=== PATIENT | male | born 1985 | race Caucasian/White ===

== ENCOUNTER 2017-10-06 09:57 | Inpatient (IN) ==
[2017-10-06] MEDS ORDERED: IOPAMIDOL 100 ML BOTTLE IJ ONE (09:58)
[2017-10-06] MEDS ORDERED: ONDANSETRON 4 MG/2 ML VIAL IV ONE ×2 (10:28→11:25)
[2017-10-06] MEDS ORDERED: 0.9 % SODIUM CHLORIDE 1,000 ML IV ONE ×2 (10:29→11:49)
[2017-10-06] MEDS ORDERED: HYDROmorphone 2 MG/ML SYRINGE IV SCH ×2 (10:30→11:30)
[2017-10-06 11:19] LABS: Basophils # (Auto) 0 K/mcL (0.0-0.3); Basophils % (Auto) 0.3 % (0.0-2.0); Eosinophils # (Auto) 0.1 K/mcL (0.0-0.7); Eosinophils % (Auto) 1.1 % (0.0-7.0); Lymphocytes # (Auto) 1.7 K/mcL (1.5-4.8); Lymphocytes % (Auto) 13.9 % (15.5-49.0); Mean Cell Volume 85.7 fL (80.0-100.0); Mean Corpuscular HGB Conc 33.7 g/dL (31.0-36.0); Mean Corpuscular Hemoglobin 28.9 pg (26.0-34.0); Monocytes # (Auto) 0.5 K/mcL (0.1-0.9); Monocytes % (Auto) 3.7 % (1.0-12.0); Platelet Count 291 K/mcL (140-440); RBC 4.56 M/mcL (4.50-5.90); Red Cell Distribution Width 12.7 % (11.5-14.5)
[2017-10-06 11:34] LABS: ALT/SGPT 16 U/l (0-40); Albumin 4.2 gm/dL (3.2-5.2); Albumin/Globulin Ratio 1.7 (1.0-2.3); Alkaline Phosphatase 60 U/L (39-117); Amylase 243 U/L (28-100); Blood Urea Nitrogen 14 mg/dl (6-20)
[2017-10-06 11:40] LABS: Lipase 760 U/L (7-60)
[2017-10-06] MEDS ORDERED: 0.9 % SODIUM CHLORIDE 2,000 ML IV ONE (11:54)
--- NOTE | 2017-10-06 11:57 | Emergency Department Note ---
Abdominal Pain HPI - General Chief Complaint: Abdominal Pain Stated Complaint: abd pain, central Time Seen by Provider: 10/06/17 10:09 Source: patient Mode of arrival: ambulatory Limitations: no limitations - History of Present Illness HPI Narrative: 32-year-old male presents with abdominal pain since last night. Worse this morning and woke him up in the middle the night. States he has had pancreatitis in the past. he believes he has pancreatitis again. States this was previously because from drug and alcohol use. However he states he just got out of [facility] a couple of days ago. He was in [facility] for over 2 years so it has been at least 2 years since he has last used drugs or alcohol. Positive nausea. No vomiting or diarrhea. Unknown fever. Positive chills. No cough or cold symptoms. - Related Data Home Medications Medication Instructions Recorded Confirmed Aripiprazole [Abilify] 15 mg PO DAILY 11/03/15 11/03/15 Benztropine [Cogentin] 2 mg PO BID 11/03/15 11/03/15 busPIRone [Buspar] 30 mg PO BID 11/03/15 11/03/15 Allergies Allergy/AdvReac Type Severity Reaction Status Date / Time morphine AdvReac Agitated Verified 10/06/17 10:05 Review of Systems All systems ED: reviewed and negative except as stated. Abdominal Pain PMH - Past Medical History Medical history: Reports: other (Pancreatitis, prior alcoholism, prior drug use. States no drug or alcohol use for the last 2+ years) Surgical history ED: Reports: no surgical history - Social History Smoking status: Current every day smoker Alcohol use: Reports: None (Denies) Drug use: Reports: none (Denies) Physical Exam Limitations: no limitations General appearance: alert, in no apparent distress Head: atraumatic, normocephalic, normal inspection Eye: Present: normal appearance. Absent: conjunctival injection ENT: normal exam, normal oropharynx, mucous membranes moist, TM's normal bilaterally, normal external ear exam Neck: Present: normal inspection, trachea midline. Absent: tenderness, lymphadenopathy Chest: Present: normal inspection, symmetric chest wall rise Respiratory: Present: normal lung sounds bilaterally. Absent: respiratory distress, wheezes, accessory muscle use Cardiovascular: Present: regular rate, normal heart sounds Abdominal: Present: soft, tenderness (Midepigastric tenderness and left upper quadrant tenderness with palpation.). Absent: distention, mass Extremities: Present: normal inspection. Absent: pedal edema Back: Absent: CVA tenderness (R), CVA tenderness (L) Neurological: Present: alert, oriented X3 Psychiatric: Present: normal affect, normal mood Skin: Present: warm, dry, intact, normal color. Absent: rash, cyanosis, diaphoresis, erythema Course Course Narrative: Spoke with Dr. Marquez who agrees to admit the patient. He is requiring IV medication for pain control and nausea control. Vital Signs Temperature 97.1 F 10/06/17 09:58 Pulse Rate 70 10/06/17 09:58 Respiratory Rate 16 10/06/17 09:58 Blood Pressure 144/86 10/06/17 09:58 Pulse Oximetry (%) 97 10/06/17 09:58 Temperature 97.1 F 10/06/17 09:58 Pulse Rate 61 10/06/17 13:50 Respiratory Rate 18 10/06/17 13:50 Blood Pressure 123/87 10/06/17 13:50 Pulse Oximetry (%) 97 10/06/17 13:50 Abdominal Pain - Lab Data Lab results reviewed: Yes I reviewed the patient's lab results. Result diagrams: 10/06/17 10:33 10/06/17 10:33 Lab Results 10/06/17 10/06/17 10/06/17 Range/Units 10:33 10:33 10:33 WBC 12.4 H (4.5-11.0) K/mcL RBC 4.56 (4.50-5.90) M/mcL Hgb 13.2 L (13.5-16.5) g/dL Hct 39.0 L (41.0-55.0) % MCV 85.7 (80.0-100.0) fL MCH 28.9 (26.0-34.0) pg MCHC 33.7 (31.0-36.0) g/dL RDW 12.7 (11.5-14.5) % Plt Count 291 (140-440) K/mcL MPV 7.6 (7.4-10.4) fL Gran % 81.0 H (38.0-78.0) % Lymph % (Auto) 13.9 L (15.5-49.0) % Barber % (Auto) 3.7 (1.0-12.0) % Eos % (Auto) 1.1 (0.0-7.0) % Baso % (Auto) 0.3 (0.0-2.0) % Gran # 10.1 H (1.8-8.0) K/mcL Lymph # (Auto) 1.7 (1.5-4.8) K/mcL Barber # (Auto) 0.5 (0.1-0.9) K/mcL Eos # (Auto) 0.1 (0.0-0.7) K/mcL Baso # (Auto) 0 (0.0-0.3) K/mcL Sodium 139 (133-145) mmol/L Potassium 4.1 (3.3-5.1) mmol/L Chloride 102 (96-108) mmol/L Carbon Dioxide 23 (22-30) mmol/L Anion Gap 14.0 (8-16) BUN 14 (6-20) mg/dl Creatinine 1.0 (0.7-1.2) mg/dl GFR Calculation 100 Glucose 106 H (70-105) mg/dL Calcium 9.0 (8.6-10.4) mg/dl Total Bilirubin 0.4 (0.0-1.0) mg/dL AST 12 (0-37) U/l ALT 16 (0-40) U/l Alkaline Phosphatase 60 (39-117) U/L Total Protein 6.7 (5.9-8.4) gm/dL Albumin 4.2 (3.2-5.2) gm/dL Globulin 2.5 (2.2-3.7) gm/dL Albumin/Globulin Ratio 1.7 (1.0-2.3) Amylase 243 H (28-100) U/L Lipase 760 H (7-60) U/L Urine Opiates Screen (NONDETECTED) Ur Oxycodone Screen (NONDETECTED) Urine Methadone Screen (NONDETECTED) Ur Barbiturates Screen (NONDETECTED) Ur Phencyclidine Scrn (NONDETECTED) Ur Amphetamines Screen (NONDETECTED) U Benzodiazepines Scrn (NONDETECTED) Urine Cocaine Screen (NONDETECTED) U Marijuana (THC) Screen (NONDETECTED) Ethyl Alcohol < 0.010 (<0.010) gm/dl 10/06/17 Range/Units 11:59 WBC (4.5-11.0) K/mcL RBC (4.50-5.90) M/mcL Hgb (13.5-16.5) g/dL Hct (41.0-55.0) % MCV (80.0-100.0) fL MCH (26.0-34.0) pg MCHC (31.0-36.0) g/dL RDW (11.5-14.5) % Plt Count (140-440) K/mcL MPV (7.4-10.4) fL Gran % (38.0-78.0) % Lymph % (Auto) (15.5-49.0) % Barber % (Auto) (1.0-12.0) % Eos % (Auto) (0.0-7.0) % Baso % (Auto) (0.0-2.0) % Gran # (1.8-8.0) K/mcL Lymph # (Auto) (1.5-4.8) K/mcL Barber # (Auto) (0.1-0.9) K/mcL Eos # (Auto) (0.0-0.7) K/mcL Baso # (Auto) (0.0-0.3) K/mcL Sodium (133-145) mmol/L Potassium (3.3-5.1) mmol/L Chloride (96-108) mmol/L Carbon Dioxide (22-30) mmol/L Anion Gap (8-16) BUN (6-20) mg/dl Creatinine (0.7-1.2) mg/dl GFR Calculation Glucose (70-105) mg/dL Calcium (8.6-10.4) mg/dl Total Bilirubin (0.0-1.0) mg/dL AST (0-37) U/l ALT (0-40) U/l Alkaline Phosphatase (39-117) U/L Total Protein (5.9-8.4) gm/dL Albumin (3.2-5.2) gm/dL Globulin (2.2-3.7) gm/dL Albumin/Globulin Ratio (1.0-2.3) Amylase (28-100) U/L Lipase (7-60) U/L Urine Opiates Screen None detected (NONDETECTED) Ur Oxycodone Screen None detected (NONDETECTED) Urine Methadone Screen None detected (NONDETECTED) Ur Barbiturates Screen None detected (NONDETECTED) Ur Phencyclidine Scrn None detected (NONDETECTED) Ur Amphetamines Screen None detected (NONDETECTED) U Benzodiazepines Scrn None detected (NONDETECTED) Urine Cocaine Screen None detected (NONDETECTED) U Marijuana (THC) Screen None detected (NONDETECTED) Ethyl Alcohol (<0.010) gm/dl - Radiology Data Radiology results reviewed: Yes I reviewed the patient's radiology results. Disposition Pt seen by MEDICAL DRIVER/PA only: No Clinical Impression: Pancreatitis Disposition: Xfer As Inpt ([facility]) Condition: Good Referrals: No,PCP [Primary Care Provider] -
--- NOTE | 2017-10-06 12:22 | Cat Scan Report ---
CLINICAL INFORMATION: Abdominal pain. COMPARISON: None. TECHNIQUE: Axial images were obtained through the abdomen and pelvis. Sagittally and coronally reformatted images. 80 mL injected intravenously. Oral contrast material was not administered FINDINGS: There is infiltration of peripancreatic fat within the lesser sac. Appearance is consistent with pancreatitis. Pancreas is is negative. No evidence for pancreatic abscess or necrosis. There is no pseudocyst. Findings are consistent with mild simple pancreatitis. Pancreatic duct is not dilated. Negative liver. No focal intrahepatic abnormality. No evidence for cirrhosis. Gallbladder is negative. No calcified gallstones. No dilated bile ducts. Spleen is negative. Normal enhancement of splenic and portal veins Negative adrenal glands. Kidneys are negative. No solid or cystic mass. No hydronephrosis. Small retroperitoneal lymph nodes are considered physiologic. Colon is negative. No diverticulitis. No detectable mass. No mechanical small bowel obstruction. Urinary bladder is distended. No calcified bladder stone. Bases are negative. No focal infiltrate. No pleural fluid or pericardial fluid IMPRESSION: 1. Findings consistent with mild pancreatitis. There is infiltration of peripancreatic fat. 2. No pancreatic mass. No pseudocyst. 3. Distended urinary bladder. No detectable calculus or mass The exam was performed using radiation dose optimization techniques including, but not limited to, automated exposure control, adjustment of the mA and/or kV according to patient size and use of iterative reconstruction technique. Interpreted and Authenticated by: Donald Garcia 10/06/17
[2017-10-06 12:29] LABS: Amphetamine Screen,Urine NONE DETECTED (NONDETECTED); Benzodiazepines Screen,Urine NONE DETECTED (NONDETECTED); Cocaine Screen,Urine NONE DETECTED (NONDETECTED); Opiate Screen,Urine NONE DETECTED (NONDETECTED); Oxycodone, Urine Screen NONE DETECTED (NONDETECTED)
--- NOTE | 2017-10-06 12:41 | Emergency Department Note ---
ED Note Addendum Note Addendum: I have examined the patient and lab work and agree with dx of pancreatitis . CT - pancreatitis. I agree with diagnosisi and treatment and need to admitt.
[2017-10-06] MEDS ORDERED: ACETAMINOPHEN 325 MG TABLET PO PRN (14:39)
[2017-10-06] MEDS ORDERED: ACETAMINOPHEN 1,000 MG/100 ML BOTTLE IV PRN (14:39)
[2017-10-06] MEDS ORDERED: ONDANSETRON 4 MG/2 ML VIAL IV PRN (14:39)
[2017-10-06] MEDS ORDERED: MAGNESIUM SULFATE 2 GM/50 ML BAG IV PRN (14:39)
[2017-10-06] MEDS ORDERED: POTASSIUM CHLORIDE 40 MEQ in DEXTROSE 5% IN WATER 500 ML IV PRN (14:39)
[2017-10-06] MEDS ORDERED: PROMETHAZINE 25 MG/ML VIAL IV PRN (14:39)
[2017-10-06] MEDS: HYDROmorphone 2 MG/ML SYRINGE IV PRN ×3 (14:59→23:19)
[2017-10-06 15:18] LABS: C-Reactive Protein < 0.3 mg/dl (0.0-0.8)
[2017-10-06] MEDS: 0.9 % SODIUM CHLORIDE 10 ML SYRINGE IV SCH ×2 (15:56→22:28)
[2017-10-06] MEDS: 0.9 % SODIUM CHLORIDE 1,000 ML IV SCH (16:00)
--- NOTE | 2017-10-06 16:09 | History and Physical Report ---
DATE OF ADMISSION: 10/06/2017 REASON FOR ADMISSION: Abdominal pain. HISTORY OF CHIEF COMPLAINT: The patient is a 32-year-old who was recently released from [place] [facility] and carries a history of recurrent pancreatitis, and as per patient the fourteenth episode, who comes to [facility] Emergency Room with significant abdominal pain that started last night. He endorses to 8/10 abdominal pain radiating from front to back, associated with nausea. He denies any associated diarrhea or fever. He endorses to pressure symptoms, pain exacerbated with food with no relieving factor. The pain continued to get worse throughout the night which kept him awake. Given his previous episodes of pancreatitis, the patient became concerned and subsequently came to [facility]. He, however, endorses that he has not been drinking. He was recently released from [facility] and has not used alcohol or drugs in the last couple years. Other than that, he denies fever, shaking chills, yellow discoloration of urine and he further denies bloody emesis, bloody stool, dysuria, or shaking chills. Initial workup in the ER was significant for lipase over 700 along with elevated amylase. Patient was started on crystalloids, initial CT shows simple pancreatitis and subsequently Hospitalist Service was consulted for admission. REVIEW OF SYSTEMS: Ten-point review of system was performed and negative except the ones discussed above. PAST MEDICAL HISTORY: History of anxiety disorder, recurrent pancreatitis. CURRENT MEDICATIONS: 1. Buspirone 30 mg b.i.d. 2. Benztropine 2 b.i.d. 3. Aripiprazole 15 mg b.i.d. ALLERGIES: MORPHINE. FAMILY HISTORY: None remarkable for pancreatitis. SOCIAL HISTORY: He smokes frequently, lives with a girlfriend. He denies recent alcohol or substance abuse. PHYSICAL EXAMINATION: GENERAL: The patient is alert and oriented. BMI 27. Height 5 feet 10 inches. He has extensive tattoos. VITAL SIGNS: Blood pressure 150/75, respiration rate 20, temperature 97.1, pulse 70, sats 97%. HEENT: Pupils symmetric. Oral cavity is dry. No ear or nose discharge. Head is normocephalic and atraumatic. NECK: No lymphadenopathy. HEART: S1, S2, regular rate and rhythm. No murmur. CHEST: Clear to auscultation. ABDOMEN: Tender in epigastric area without rebound. LOWER EXTREMITIES: No cyanosis or clubbing. No joint swelling. SKIN: No suspicious lesions; generalized extensive tattoos. PSYCHIATRIC: Alert and cooperative. No anxiety or agitation. NEURO: Nonfocal, moving all four extremities. LABS AND IMAGING: White count 12.4, hemoglobin 13.2. Sodium 139, potassium 4.1, creatinine 1, BUN 14 and CRP pending. Lipase 760, amylase 243. Tox screen negative. Alcohol 0.01. ASSESSMENT AND PLAN: A 32-year-old with history of recurrent pancreatitis, admitted with acute pancreatitis. 1. Acute pancreatitis, simple pancreatitis on imaging with 10 x normal elevation in lipase, unclear etiology. Continue management per protocol with aggressive crystalloids, antiemetics, analgesics, and n.p.o. with continued bowel rest, low Hope's and KOTLIK score on admission signifying low risk mortality. The patient will be admitted as inpatient and will continue to trend serial CRP for improvement in abdominal pain, will be managed on opioids. 2. History of anxiety disorder. Continue BuSpar. PLAN FOR TODAY: Exact etiology is uncertain given negative CT, possibly alcohol induced. Continue conservative management along with pain relief as indicated with IV opioids. AA:yoselin Job ID: [id number] Doc ID: [id number] Roderick Claros MD
[2017-10-06] MEDS: LACTATED RINGERS 1,000 ML IV SCH ×2 (17:11→22:21)
[2017-10-06] MEDS: HEPARIN 5,000 UNIT/ML VIAL SQ SCH (22:26)
[2017-10-06] MEDS: SENNOSIDES/DOCUSATE SODIUM 1 TAB TABLET PO SCH (22:26)
[2017-10-06] MEDS: DOCUSATE SODIUM 100 MG CAPSULE PO SCH (22:26)
[2017-10-07] MEDS: HYDROmorphone 2 MG/ML SYRINGE IV PRN ×5 (03:08→23:51)
[2017-10-07] MEDS: LACTATED RINGERS 1,000 ML IV SCH ×3 (03:13→11:31)
[2017-10-07] MEDS: 0.9 % SODIUM CHLORIDE 10 ML SYRINGE IV SCH ×3 (05:25→21:15)
[2017-10-07 06:46] LABS: Mean Cell Volume 85.8 fL (80.0-100.0); Mean Corpuscular HGB Conc 34.3 g/dL (31.0-36.0); Mean Corpuscular Hemoglobin 29.4 pg (26.0-34.0); Platelet Count 243 K/mcL (140-440); RBC 3.94 M/mcL (4.50-5.90); Red Cell Distribution Width 12.8 % (11.5-14.5)
[2017-10-07 07:04] LABS: ALT/SGPT 13 U/l (0-40); Albumin 3.7 gm/dL (3.2-5.2); Albumin/Globulin Ratio 1.8 (1.0-2.3); Alkaline Phosphatase 53 U/L (39-117); Bilirubin,Direct < 0.2 mg/dL (0.0-0.3); Blood Urea Nitrogen 12 mg/dl (6-20); C-Reactive Protein 0.8 mg/dl (0.0-0.8); Gamma Glutamyl Transpeptidase 11 U/L (8-61); Magnesium 1.8 mg/dL (1.6-2.5); Uric Acid 6.7 mg/dL (2.5-8.0)
[2017-10-07 08:15] LABS: Band Neutrophils % 1 % (0-10); Eosinophils % (Manual) 2 % (0-7); Lymphocytes % 30 % (15-49); Monocytes % (Manual) 7 % (1-12); Platelet Estimate NORMAL (NORMAL); RBC Morphology NORMAL (NORMAL); Segmented Neutrophils % 60 % (38-78)
[2017-10-07] MEDS ORDERED: THIAMINE 100 MG in 0.9 % SODIUM CHLORIDE 50 ML IV SCH (09:00)
[2017-10-07] MEDS: DOCUSATE SODIUM 100 MG CAPSULE PO SCH ×2 (09:52→21:14)
[2017-10-07] MEDS: HEPARIN 5,000 UNIT/ML VIAL SQ SCH ×2 (09:52→21:14)
[2017-10-07] MEDS: MULTIVIT,THER IRON,CA,FA & MIN 1 TABLET PO SCH (09:52)
--- NOTE | 2017-10-07 10:19 | Internal Med Progress Note ---
Medical - PN: Subj Patient information: Note initiated : 10/07/17 at 10:17 am Service Date, if different from initiated Date: [] Patient: Celso Adames 32 y/o M admitted on 10/06/17 for abd pain, central. Chief Complaint: [] Interval history: 10/06-atient admitted with acute simple pancreatitis. Low Foster score admitted. Conservative management with bowel rest crystalloids and antiemetics and pain management. Unclear etiology. Negative abdominal CT. lipase 760 10/07-patient doing well. Improved with bowel pain and ambulating. No nausea. Start clear liquids. advance diet in the next 24-48 hours. Continue conservative management. CRP 0.3. No overnight fever chills - Constitutional Vitals: Vital Signs Temp Pulse Resp BP Pulse Ox 96.8 F L 60 14 117/62 96 10/07/17 06:53 10/07/17 08:27 10/07/17 06:53 10/07/17 06:53 10/07/17 08:27 Period Temp Pulse Resp BP Sys/Echavarria Pulse Ox Last 24 Hr 96.8 F-97.9 F 56-78 14-20 112-135/61-90 94-98 Intake and Output 10/06/17 10/07/17 10/07/17 21:59 05:59 13:59 Intake Total 1972 977 / 977 Balance 1972 977 / 977 Weight 202 lb Intake & Output: Intake & Output 10/06/17 10/07/17 10/07/17 21:59 05:59 13:59 Intake Total 1972 977 / 977 Balance 1972 977 / 977 Weight 202 lb Intake: IV 1972 977 / 977 Lactated Ringers 1,000 ml @ 200 1972 977 / 977 mls/hr IV .Q5H [facility] Rx#: [id number] General appearance: average body habitus, no acute distress Exam: alert oriented nonlabored breathing nondistended abdomen Stable hemodynamics and vitals Medical - PN: Obj Da - Labs CBC & Chem 7: 10/07/17 04:40 10/07/17 04:40 Labs: Abnormal Lab Results 10/07/17 10/07/17 10/06/17 04:40 04:40 10:33 WBC RBC 3.94 L Hgb 11.6 L Hct 33.8 L Gran % Lymph % (Auto) Gran # Glucose 106 H Total Protein 5.8 L Globulin 2.1 L Amylase 243 H Lipase 760 H 10/06/17 10:33 WBC 12.4 H RBC Hgb 13.2 L Hct 39.0 L Gran % 81.0 H Lymph % (Auto) 13.9 L Gran # 10.1 H Glucose Total Protein Globulin Amylase Lipase Meds: Medications Acetaminophen (Tylenol) 650 mg PO Q4-6HP PRN PRN Reason: PAIN/FEVER > 101 Docusate Sodium (Colace) 100 mg PO BID [facility] Last Admin: 10/07/17 09:52 Dose: 100 mg Heparin Sodium (Porcine) (Heparin) 5,000 unit SQ Q12 [facility] Last Admin: 10/07/17 09:52 Dose: 5,000 unit Hydromorphone HCl (Dilaudid) 0 mg IV Q4HP PRN PRN Reason: PAIN LEVEL > 6 Last Admin: 10/07/17 07:23 Dose: 1 mg Potassium Chloride 40 meq/ (Dextrose) 520 mls @ 130 mls/hr IV UD PRN PRN Reason: K+ = or < 3.5 Lactated Ringer's (Lactated Ringers) 1,000 mls @ 200 mls/hr IV .Q5H [facility] Stop: 10/07/17 15:38 Last Admin: 10/07/17 08:06 Dose: 200 mls/hr Magnesium Sulfate (Magnesium Sulfate) 2 gm in 50 mls @ 50 mls/hr IV UD PRN PRN Reason: MG = or < 1.7 Sodium Chloride (Sodium Chloride 0.9%) 1,000 mls @ 0 mls/hr IV BOLUS [facility] PRN Reason: Wide Open Last Admin: 10/06/17 16:00 Dose: 999 mls/hr Acetaminophen (Ofirmev) 1,000 mg in 100 mls @ 200 mls/hr IV Q6HP PRN PRN Reason: PAIN/FEVER > 101 Thiamine HCl 100 mg/ Sodium (Chloride) 51 mls @ 50 mls/hr IV DAILY [facility] Stop: 10/09/17 10:02 Iron Carb/Multivit/Edmonson/Folic Acid (Multivitamin W/Minerals) 1 tab PO DAILY [facility] Last Admin: 10/07/17 09:52 Dose: 1 tab Ondansetron HCl (Zofran) 4 mg IV Q4-6HP PRN PRN Reason: Nausea And Vomiting Promethazine HCl (Phenergan) 6.25 mg IV Q4-6HP PRN PRN Reason: Nausea And Vomiting Senna/Docusate Sodium (Senna Plus Tablet) 1 tab PO HS [facility] Last Admin: 10/06/17 22:26 Dose: 1 tab Sodium Chloride (Saline Flush) 10 ml IV Q8 [facility] Last Admin: 10/07/17 05:25 Dose: Not Given Medical - PN: A/P - Time Spent With Patient Total time spent is greater than 50% in coordination of care (as documented) at patient's floor/unit and/or counseling patient: 15 - 24 minutes (1) Acute pancreatitis without necrosis or infection, unspecified Status: Acute Assessment and plan: * Acute simple pancreatitis- on conservative management, bowel rest, analgesics , crystalloids, NPO and antiemetics. Lipase 760. CRP 0.03. Start clear liquids * Abdominal pain managed on opioids. Much improved Plan * Clear liquids and advance as tolerated * possible discharge in 24 to 48 hours Current Visit: Yes Medical - PN: Qual - Stroke Symptom Onset Unknown: No - VTE Deep Vein Thrombosis/Pulmonary Embolism Present on Admission: No
[2017-10-07] MEDS: THIAMINE 100 MG TABLET PO SCH (11:49)
[2017-10-07] MEDS: 0.9 % SODIUM CHLORIDE 1,000 ML IV SCH (14:35)
[2017-10-07] MEDS: SENNOSIDES/DOCUSATE SODIUM 1 TAB TABLET PO SCH (21:14)
[2017-10-08] MEDS: HYDROmorphone 2 MG/ML SYRINGE IV PRN ×2 (04:39→08:17)
[2017-10-08] MEDS: 0.9 % SODIUM CHLORIDE 10 ML SYRINGE IV SCH (04:40)
[2017-10-08 06:21] LABS: Mean Cell Volume 85.4 fL (80.0-100.0); Mean Corpuscular HGB Conc 34.4 g/dL (31.0-36.0); Mean Corpuscular Hemoglobin 29.4 pg (26.0-34.0); Platelet Count 217 K/mcL (140-440); RBC 3.93 M/mcL (4.50-5.90); Red Cell Distribution Width 12.7 % (11.5-14.5)
[2017-10-08 06:39] LABS: ALT/SGPT 12 U/l (0-40); Albumin 3.5 gm/dL (3.2-5.2); Albumin/Globulin Ratio 1.6 (1.0-2.3); Alkaline Phosphatase 50 U/L (39-117); Bilirubin,Direct < 0.2 mg/dL (0.0-0.3); Blood Urea Nitrogen 8 mg/dl (6-20); Gamma Glutamyl Transpeptidase 10 U/L (8-61); Magnesium 1.9 mg/dL (1.6-2.5); Uric Acid 6.7 mg/dL (2.5-8.0)
[2017-10-08 07:38] LABS: Eosinophils % (Manual) 3 % (0-7); Lymphocytes % 32 % (15-49); Monocytes % (Manual) 3 % (1-12); Platelet Estimate NORMAL (NORMAL); RBC Morphology NORMAL (NORMAL); Segmented Neutrophils % 62 % (38-78)
[2017-10-08] MEDS: THIAMINE 100 MG TABLET PO SCH (08:09)
[2017-10-08] MEDS: HEPARIN 5,000 UNIT/ML VIAL SQ SCH (08:09)
[2017-10-08] MEDS: MULTIVIT,THER IRON,CA,FA & MIN 1 TABLET PO SCH (08:09)
[2017-10-08] MEDS: DOCUSATE SODIUM 100 MG CAPSULE PO SCH (08:09)
--- NOTE | 2017-10-08 09:37 | Discharge Summary ---
Medical - DS: Prov Patient information: Note initiated : 10/08/17 at 9:34 am Service Date, if different from initiated Date: [] Patient: Celso Adames 32 y/o M admitted on 10/06/17 for Abd Pain, Central/ Pancreatitis. Chief Complaint: [] Date of admission: 10/06/17 14:36 Discharge date: 10/08/17 Primary care physician: PCP No Medical - DS: Meds - Discharge Medications Prescriptions: HYDROcodone/ACETAMINOPHEN [Hydrocodon-Acetaminophen 5-325] 1 each PO Q6HP PRN # 14 tab PRN Reason: Pain Active and Home Medications: Home Medications Benztropine [Cogentin] 2 mg PO BID 11/03/15 [History Confirmed 10/06/17 Last Taken 10/06/17 07:30] busPIRone [Buspar] 30 mg PO BID 11/03/15 [History Confirmed 10/06/17 Last Taken 10/06/17 07:30] FLUoxetine HCL [Prozac] 30 mg PO DAILY 10/06/17 [History Confirmed 10/06/17 Last Taken 10/06/17] OLANZapine [Zyprexa] 10 mg PO HS 10/06/17 [History Confirmed 10/06/17 Last Taken 10/05/17] HYDROcodone/ACETAMINOPHEN [Hydrocodon-Acetaminophen 5-325] 1 each PO Q6HP PRN # 14 tab 10/08/17 [Rx Last Taken Unknown] Medical - DS: Hosp Hospital course: DISCHARGE DIAGNOSIS * Acute simple pancreatitis- Clinically resolved on conservative management, bowel rest, analgesics, crystalloids, NPO and antiemetics. Lipase 760. diet advanced to soft without any significant abdominal pain. clinically back to baseline. * Abdominal pain managed on opioids. esolved * anxiety disorder start SSRI BRIEF HOSPITAL COURSE Mr. Adames is a 32 year old M 10/06-atient admitted with acute simple pancreatitis. Low Kimball score admitted. Conservative management with bowel rest crystalloids and antiemetics and pain management. Unclear etiology. Negative abdominal CT. lipase 760 10/07-patient doing well. Improved with bowel pain and ambulating. No nausea. Start clear liquids. advance diet in the next 24-48 hours. Continue conservative management. CRP 0.3. No overnight fever chills 10/08-patient doing better. Tolerating soft diet. Abdominal pain nearly resolved. Feels at baseline. Requesting discharge. Advised to refrain from alcohol and continue nonfat diet Discharge diagnosis: . - Time Spent with Patient Total time spent providing and/or coordinating discharge services: Greater than 30 minutes Medical - DS: Exam - Constitutional Vitals: Vital Signs Temp Pulse Pulse Resp BP BP Pulse Ox 10/08/17 07:40 74 95 10/08/17 06:43 97.1 F 55 L 16 122/75 95 10/08/17 03:52 97.8 F 51 L 16 111/69 96 10/07/17 23:53 98.1 F 55 L 18 146/86 97 10/07/17 19:21 97.6 F 56 L 16 124/64 96 10/07/17 15:32 98.8 F 14 110/71 94 10/07/17 12:00 97.8 F 14 116/73 97 Intake and Output 10/07/17 10/08/17 10/08/17 21:59 05:59 13:59 Intake Total 1650 / 1650 250 / 250 240 / 240 Balance 1650 / 1650 250 / 250 240 / 240 Intake: IV 1000 / 1000 Sodium Chloride 0.9% 1,000 ml @ 1000 / 1000 Wide Open IV [facility] Rx#: [id number] Oral 650 / 650 250 / 250 240 / 240 Other: # Voids 2 Weight 203 lb 8 oz Medical - DS: Data Labs on day of discharge: Labs from last 24 hours 10/08/17 10/08/17 04:35 04:35 WBC 6.8 RBC 3.93 L Hgb 11.5 L Hct 33.6 L MCV 85.4 MCH 29.4 MCHC 34.4 RDW 12.7 Plt Count 217 MPV 7.8 Total Counted 100 Seg Neutrophils % 62 Band Neutrophils % Not Reportable Lymphocytes % 32 Monocytes % (Manual) 3 Eosinophils % (Manual) 3 Platelet Estimate Normal RBC Morphology Normal Sodium 140 Potassium 3.8 Chloride 105 Carbon Dioxide 26 Anion Gap 9.0 BUN 8 Creatinine 0.9 GFR Calculation 113 Glucose 87 Uric Acid 6.7 Calcium 8.5 L Phosphorus 3.1 Magnesium 1.9 Total Bilirubin 0.2 Direct Bilirubin < 0.2 GGT 10 AST 12 ALT 12 Alkaline Phosphatase 50 Lactate Dehydrogenase 138 Total Protein 5.7 L Albumin 3.5 Globulin 2.2 Albumin/Globulin Ratio 1.6 Triglycerides 87 Medical - DS: A/P - Patient/Caregiver Discharge Instructions Activity: increase activity as tolerated Diet: Low Fat Additional Instructions: low-fat diet Refrain from alcohol Return to ER if worsening abdominal pain Prescriptions: HYDROcodone/ACETAMINOPHEN [Hydrocodon-Acetaminophen 5-325] 1 each PO Q6HP PRN # 14 tab PRN Reason: Pain - Problem Maintenance (1) Acute pancreatitis without necrosis or infection, unspecified Status: Acute - Follow up Plan Follow up with: No,PCP [Primary Care Provider] - Disposition: Home, Self-Care Prognosis: Good Rehab Potential: Fair I certify that the patient requires SNF services: No Overall status at discharge: patient is progressing back to baseline Medical - DS: Qual - VTE Deep Vein Thrombosis/Pulmonary Embolism Present on Admission: No
[2017-10-08] MEDS ORDERED: OLANZapine 5 MG TABLET PO SCH (21:00)
[2017-10-08] MEDS ORDERED: busPIRone 15 MG TABLET PO SCH (21:00)
[2017-10-08] MEDS ORDERED: BENZTROPINE 1 MG TABLET PO SCH (21:00)
[2017-10-09] MEDS ORDERED: FLUoxetine HCL 10 MG CAPSULE PO SCH (09:00)
== END 2017-10-08 11:40 | disposition home or self-care (01) | DRG 440 ==
LOC: ED 09:57 → MEDSUR 14:36
PROVIDERS: ADMIT Internal Medicine; ATTEND Internal Medicine